=== PATIENT | female | born 1980 | race Caucasian/White ===

== ENCOUNTER 2017-05-10 11:35 | Observation (INO) ==
--- NOTE | 2017-05-10 12:05 | Emergency Department Note ---
Disposition Clinical Impression: Chest pain Qualifiers: Chest pain type: other chest pain Qualified Code(s): R07.89 - Other chest pain Disposition: Admitted As Inpatient Condition: Good Chest Pain HPI - General Chief Complaint: ED Chest Pain Stated Complaint: CP Time Seen by Provider: 05/10/17 11:55 Source: patient Mode of arrival: ambulatory Limitations: no limitations Vital Signs Reviewed: Yes Nursing Notes Reviewed: Yes - History of Present Illness HPI Narrative: 36-year-old who comes in complaining of chest pain. Patient states she's had chest pain in the past that has been attributed to anxiety although she says this feels different. He states in the past she's had rapid heartbeat intermittently and states her doctor has never worked it up. Pt complaint: chest pain Onset (ago): Just [employer] Duration: constant Onset: during rest Severity: moderate Severity scale (1-10): 4 Quality: tightness Pain Radiation: none Improves with: nothing Worsens with: nothing Associated symptoms: Reports: other (Some generalized leg cramps) Treatments prior to arrival chest pain: none - Related Data Home Medications Medication Instructions Recorded Confirmed BuPROPion SR (12 HR) [Wellbutrin 150 mg PO DAILY 05/10/17 05/10/17 SR] hydrOXYzine HCl [Hydroxyzine HCl] 50 mg PO BID PRN 05/10/17 05/10/17 Allergies Allergy/AdvReac Type Severity Reaction Status Date / Time acetaminophen [From Percocet] AdvReac Hallucinati Verified 05/10/17 14:43 ng Oxycodone [From Percocet] AdvReac Hallucinati Verified 05/10/17 14:43 ng All systems ED: reviewed and negative except as stated. Constitutional: Denies: fever, chills, weakness, weight change Eyes: Denies: eye pain, eye discharge, vision change ENT ED: Denies: ear pain, throat pain, dental pain, hearing loss, epistaxis, congestion, dysphagia Cardiovascular: Reports: chest pain. Denies: palpitations, dyspnea on exertion , edema, syncope Respiratory: Denies: cough, dyspnea, wheezes, hemoptysis, stridor Gastrointestinal: Denies: abdominal pain, nausea, vomiting, diarrhea, constipation, hematemesis, melena, hematochezia Genitourinary: Denies: dysuria, frequency, hematuria, discharge Musculoskeletal: Denies: back pain, neck pain, arthralgia, myalgia Integumentary: Denies: rash, abrasion, lesions Neurological: Denies: headache, weakness, numbness, paresthesias, confusion, abnormal gait, vertigo Psychiatric: Denies: anxiety, depression, suicidal thoughts, homicidal thoughts , auditory hallucinations, visual hallucinations Endocrine: Denies: fatigue Hematological/Lymphatic: Denies: easy bleeding, easy bruising Allergic/Immunologic: Denies: facial swelling, urticaria Chest Pain PMH - Past Medical History Medical history: Reports: kidney stones Surgical history: Reports: RHONDA/BSO Psychiatric history: Reports: anxiety - Social History Smoking Status: Current every day smoker Alcohol use: Reports: none, occasionally Drug use: Reports: none Physical Exam - General Limitations: no limitations General appearance: alert, in no apparent distress - Head Head exam: atraumatic, normocephalic, normal inspection - Eye Eye exam: Present: normal appearance, PERRL, EOMI - ENT ENT exam: normal exam, normal oropharynx, mucous membranes moist - Neck Neck exam: Present: normal inspection, full ROM, trachea midline - Chest Chest inspection: Present: normal inspection, symmetric chest wall rise - Respiratory Respiratory exam: Present: normal lung sounds bilaterally - Cardiovascular Cardiovascular exam: Present: regular rate, normal rhythm, normal heart sounds - Abdominal Exam Abdominal exam: Present: soft, Non-Tender. Absent: tenderness, distention, guarding, rebound, rigidity - Extremities Exam Extremities exam: Present: normal inspection, full ROM. Absent: tenderness, pedal edema - Back Exam Back exam: Present: normal inspection, full ROM. Absent: tenderness - Neurological Exam Neurological exam: Present: alert, oriented X3 - Psychiatric Psychiatric exam: Present: normal affect, normal mood - Skin Skin exam: Present: warm, dry, intact, normal color Course - Reevaluation(s) Reevaluation #1: 36-year-old female comes in with intermittent chest pain. EKG was obtained did show what appears to be new ST segment depression in leads V4 V5 and V6 compared to previous EKG. Troponin is negative Rhina bring her in as an observation. Time: 14:06 - Consultations Consultation #1: Discussed with , admit Time: 14:06 Vital Signs Temperature 98.7 F 05/10/17 11:37 Pulse Rate 111 05/10/17 11:37 Respiratory Rate 18 02/13/18 11:37 Blood Pressure 140/94 05/10/17 11:37 O2 Sat by Pulse Oximetry 100 05/10/17 11:37 Temperature 98.3 F 05/11/17 16:34 Pulse Rate 75 05/11/17 16:34 Respiratory Rate 16 05/11/17 16:34 Blood Pressure 122/83 05/11/17 16:34 O2 Sat by Pulse Oximetry 94 05/11/17 16:34 Oxygen Delivery Oxygen Delivery Room Air Chest Pain - Lab Data Result diagrams: 05/11/17 01:07 05/11/17 01:07 Lab Results 05/10/17 05/10/17 05/10/17 Range/Units 11:48 11:48 11:48 WBC 8.6 (4.3-11.1) K/mcL RBC 5.22 H (3.82-4.97) M/mcL Hgb 15.9 H (11.5-15.4) g/dL Hct 49.8 H (35.3-44.9) % MCV 95.4 (83.0-100.0) fL MCH 30.5 (28.0-33.3) pg MCHC 31.9 (31.6-35.5) g/dL RDW 14.3 (11.5-14.5) % Plt Count 191 (140-400) K/mcL MPV 11.7 (9.4-12.4) fL Immature Gran % 0.2 (0-4) % Seg Neutrophils % 65.8 % Lymphocytes % 25.3 % Monocytes % 7.4 % Eosinophils % 1.0 % Basophils % 0.3 % Neutrophils # 5.7 (1.6-8.9) K/mcL Lymphocytes # 2.2 (0.6-4.6) K/mcL Monocytes # 0.6 (0.0-1.3) K/mcL Eosinophils # 0.1 (0.0-0.6) K/mcL Basophils # 0.0 (0.0-0.2) K/mcL PT 11.4 (9.4-12.1) Seconds INR 1.1 APTT 31.9 (26.0-36.0) Seconds D-Dimer < 215 (0-500) ng/mLFEU Sodium 139 (136-145) mEq/L Potassium 3.9 (3.5-5.1) mEq/L Chloride 106 (98-107) mEq/L Carbon Dioxide 26 (23-29) mEq/L BUN 12 (6-20) mg/dL Creatinine 0.77 (0.60-1.20) mg/dL Est GFR ( Amer) > 60 (> 60) Est GFR (Non-Af Amer) > 60 (> 60) BUN/Creatinine Ratio 16 (6-26) Glucose 102 (70-105) mg/dL Calculated Osmolality 288 (280-300) Calcium 10.1 (8.6-10.3) mg/dL Magnesium 2.0 (1.6-2.6) mg/dL Troponin I (< 0.04) ng/mL TSH 2.069 (0.340-5.600) mcIU/mL 05/10/17 Range/Units 11:48 WBC (4.3-11.1) K/mcL RBC (3.82-4.97) M/mcL Hgb (11.5-15.4) g/dL Hct (35.3-44.9) % MCV (83.0-100.0) fL MCH (28.0-33.3) pg MCHC (31.6-35.5) g/dL RDW (11.5-14.5) % Plt Count (140-400) K/mcL MPV (9.4-12.4) fL Immature Gran % (0-4) % Seg Neutrophils % % Lymphocytes % % Monocytes % % Eosinophils % % Basophils % % Neutrophils # (1.6-8.9) K/mcL Lymphocytes # (0.6-4.6) K/mcL Monocytes # (0.0-1.3) K/mcL Eosinophils # (0.0-0.6) K/mcL Basophils # (0.0-0.2) K/mcL PT (9.4-12.1) Seconds INR APTT (26.0-36.0) Seconds D-Dimer (0-500) ng/mLFEU Sodium (136-145) mEq/L Potassium (3.5-5.1) mEq/L Chloride (98-107) mEq/L Carbon Dioxide (23-29) mEq/L BUN (6-20) mg/dL Creatinine (0.60-1.20) mg/dL Est GFR ( Amer) (> 60) Est GFR (Non-Af Amer) (> 60) BUN/Creatinine Ratio (6-26) Glucose (70-105) mg/dL Calculated Osmolality (280-300) Calcium (8.6-10.3) mg/dL Magnesium (1.6-2.6) mg/dL Troponin I < 0.03 (< 0.04) ng/mL TSH (0.340-5.600) mcIU/mL - EKG Data EKG attestation: Yes I reviewed and interpreted this EKG. EKG shows normal: sinus rhythm Rate: normal Rhythm: NSR ST segment depression in: v4, v5, v6 Interpretation: other (New ST segment depression V4 5 and 6)
[2017-05-10 12:07] LABS: INR 1.1; Prothrombin Time 11.4 Seconds (9.4-12.1)
[2017-05-10 12:10] LABS: Activated Partial Thrombo Time 31.9 Seconds (26.0-36.0)
[2017-05-10] MEDS ORDERED: clonazePAM 0.5 MG TABLET PO STA (12:14)
[2017-05-10 12:21] LABS: Basophils % 0.3 %; Eosinophils # 0.1 K/mcL (0.0-0.6); Hematocrit 49.8 % (35.3-44.9); Hemoglobin 15.9 g/dL (11.5-15.4); Immature Granulocytes % 0.2 % (0-4); Lymphocytes # 2.2 K/mcL (0.6-4.6); Lymphocytes % 25.3 %; Mean Corpuscular HGB Conc 31.9 g/dL (31.6-35.5); Mean Corpuscular Hemoglobin 30.5 pg (28.0-33.3); Mean Corpuscular Volume 95.4 fL (83.0-100.0); Mean Platelet Volume 11.7 fL (9.4-12.4); Monocytes # 0.6 K/mcL (0.0-1.3); Monocytes % 7.4 %; Neutrophils # 5.7 K/mcL (1.6-8.9); Platelet Count 191 K/mcL (140-400); Red Blood Count 5.22 M/mcL (3.82-4.97); Red Cell Distribution Width 14.3 % (11.5-14.5); Segmented Neutrophils % 65.8 %
[2017-05-10 12:28] LABS: BUN/Creatinine Ratio 16 (6-26); Blood Urea Nitrogen 12 mg/dL (6-20); Calcium 10.1 mg/dL (8.6-10.3); Carbon Dioxide 26 mEq/L (23-29); Chloride 106 mEq/L (98-107); Glucose 102 mg/dL (70-105); Osmolality,Calculated 288 (280-300); Potassium 3.9 mEq/L (3.5-5.1); Sodium 139 mEq/L (136-145); eGFR For African Americans > 60 (> 60); eGFR For Non-African Americans > 60 (> 60)
[2017-05-10 12:29] LABS: D-Dimer < 215 ng/mLFEU (0-500)
[2017-05-10 12:48] LABS: Thyroid Stimulating Hormone 2.069 mcIU/mL (0.340-5.600)
[2017-05-10] MEDS ORDERED: 0.9 % Sodium Chloride 1,000 ML IVC ONE (13:42)
[2017-05-10] MEDS ORDERED: Aspirin 81 MG TAB.CHEW PO STA (13:42)
[2017-05-10] MEDS ORDERED: Ondansetron ODT 4 MG TAB.RAPDIS SL ONE (14:16)
[2017-05-10] MEDS ORDERED: Naloxone 0.4 MG/ML INJ IVP PRN (16:17)
[2017-05-10] MEDS ORDERED: Nitroglycerin 0.4 MG TAB.SUBL SL PRN (16:28)
[2017-05-10] MEDS ORDERED: hydrOXYzine pamoate 25 MG CAPSULE PO PRN (16:29)
--- NOTE | 2017-05-10 17:14 | Internal Med History&Physical ---
<OumarrachelxochiltAramis moy - Last Filed: 05/10/17 19:35> Date of Encounter: 05/10/17 Time of Encounter: 15:30 Assessment and Plan (1) Chest pain Current visit: Yes Status: Acute Acute chest pain began Tuesday afternoon as clenching feeling in chest with radiation to right arm with numbness and tingling, back, and right neck. Same symptoms 2 weeks ago. No cardiac history. Initial troponin <0.03. Trend 2. Echocardiogram ordered EKG sloughs sinus tachycardia with possible left atrial enlargement and borderline right axis deviation. Nothing by mouth at midnight for a.m. nuclear pharm stress test if troponins remain negative. Continuous cardiac telemetry. Nitroglycerin SL when necessary. Aspirin therapy. Lipitor 20 mg now. Consider cardiac consult based on abnormal echocardiogram, increasing troponins, and/or abnormal stress test results. Pt. to be monitored closely. Patient is at high risk for cardiac event based on father having NJ at age 52, recurring chest pain and sx, uncontrolled stress/anxiety, and mother w/ chronic carotid blockages. Observation. Qualifiers: Chest pain type: other chest pain Qualified Code(s): R07.89 - Other chest pain; R07.8 - Other chest pain (2) Dizziness Current visit: Yes Status: Acute Acute dizziness w/ambulation. Reports mother has chronic carotid blockages. Falls/safety precautions. PT/OT consults to assess for ambulation stability and strength. Bilateral carotid Doppler duplex imaging ordered. (3) GERD (gastroesophageal reflux disease) Current visit: Yes Status: Chronic Hx of chorinc and uncontrolled GERD. Pt. reports chronic heartburn which could be contributing to current CP sx. Phenergan 12.5 mg IVP every 6 for nausea. IVP Protonix 40 mg daily. Qualifiers: Esophagitis presence: esophagitis presence not specified Qualified Code(s) : K21.9 - Gastro-esophageal reflux disease without esophagitis (4) Anxiety Current visit: Yes Status: Chronic Hx of chronic anxiety that the pt. reports is not well-controlled. Reports 3 children including teenage son w/PTSD and SI. Tearful on exam. Psychiatric consult to assess for better psychiatric mgmt. Continue pts. Hydroxyzine and Klonopin. (5) Hx of renal calculi Current visit: Yes Status: Resolved Hx of chronic renal calculi. Stable. Monitor I&O. (6) DVT prophylaxis Current visit: Yes Status: Acute Heparin 5000 units SQ Q8 for DVT prophylaxis. Monitor patient for signs of bleeding. Internal Medicine - H&P: HPI Chief complaint: Chest pain Admitted From: Emergency Dept Plans for Post Hospital Care: Home History of present illness: Ms. Cassidy is a 36 year old female with medical history of kidney stones and GERD presents from the ED with chief complaint of chest pain that began Tuesday afternoon as centralized chest pain she describes as a clenching feeling in her chest with radiation to her right arm with numbness and tingling, back, and right neck. Same sx 2 weeks ago. Reports pain worsens with breathing and stress. Reports uncontrolled GERD and anxiety. Denies cardiac workup previously, echocardiogram, heart catheterization, or stress test. Also reports bilateral leg cramps and pain for the past 2 days. Patient reports SOB w/chest pain, dizziness, and nausea but denies recent illness, fever, chills, vomiting, changes in vision, headache, palpitations, abdominal pain, diarrhea, constipation, cough, chest congestion, pre-syncope, or syncope. Past Med Surg Social Fam HX - Past Medical History Source: patient, old records reviewed Medical history: kidney stones Psychiatric history: anxiety - Past Surgical History Surgical History: hysterectomy (Total), RHONDA/BSO - Social History Smoking Status: Current every day smoker Packs per day: 1 PPD Smokeless Tobacco Status: No Alcohol use: none, occasionally Drug use: marijuana Current living situation: Home, With Family Activity Level: Independent ambulation Recent Out of Country Travel Within the Last 8 Weeks: No Exposure or Possible Exposure to Illness During Travel: No - Family History Father Race: Family Member Ethnicity: Non- Living Status: Still Living Hx Family Cardiac Disorders: Yes (Mi @ 52) Mother Race: Family Member Ethnicity: Non- Living Status: Still Living Hx Family Cardiac Disorders: Yes (Carotid blockages) Brother Race: Family Member Ethnicity: Non- Living Status: Still Living Hx Family Medical Disorders: No Internal Medicine - H&P: Meds BuPROPion SR (12 HR) [Wellbutrin SR] 150 mg PO DAILY 05/10/17 [History] hydrOXYzine HCl [Hydroxyzine HCl] 50 mg PO BID PRN 05/10/17 [History] 3 Allergy/AdvReac Type Severity Reaction Status Date / Time acetaminophen [From Percocet] AdvReac Hallucinati Verified 05/10/17 14:43 ng Oxycodone [From Percocet] AdvReac Hallucinati Verified 05/10/17 14:43 ng All Systems PM: A 10-system review of systems was performed and is negative for pertinent findings except as documented above in the HPI. - Constitutional Constitutional: no chills, no fever(s), no night sweats - EENT Eyes: no change in vision, no discharge, no pain, no photophobia Ears: no ear discharge, no ear pain, no tinnitus Nose, mouth and throat: no dysphagia, no nasal discharge, no neck pain, no sore throat - Breasts Breasts: as per HPI - Cardiovascular Cardiovascular ROS IM: as per HPI, chest pain, dyspnea, dyspnea on exertion, no diaphoresis, no lightheadedness, no palpitations, no syncope - Respiratory Respiratory: as per HPI, dyspnea, dyspnea on exertion, no cough, no wheezing, no excessive phlegm production - Gastrointestinal Gastrointestinal: as per HPI, heartburn, nausea, no abdominal pain, no diarrhea , no hematemesis, no hematochezia, no melena, no vomiting - Genitourinary Genitourinary: no change in urinary stream, no dysuria, no flank pain, no hematuria Menstruation: as per HPI, post hysterectomy (Total) - Musculoskeletal Musculoskeletal ROS IM: as per HPI, numbness (Right arm), tingling (Right arm) - Integumentary Integumentary IM: no rash, no unusual bruising - Neurological Neurological ROS: as per HPI, dizziness, numbness, tingling, no confusion, no convulsions, no focal weakness, no tremor(s) - Psychiatric Psychiatric: as per HPI, anxiety - Endocrine Endocrine IM: as per HPI - Hematologic/Lymphatic Hematologic/Lymphatic: no easy bruising - Allergic/Immunologic Allergic/Immunologic: as per HPI - Constitutional Vitals: Temp Pulse Resp BP Pulse Ox 99 F 69 16 129/87 99 05/10/17 16:19 05/10/17 16:19 05/10/17 16:19 05/10/17 16:19 05/10/17 16:19 General appearance: Present: cooperative, A&O X 2, mild distress (Chest pain), A &O X 3, pleasant, answers questions appropriately - Head Head exam: Present: atraumatic, normocephalic - Eye Eye exam: Present: PERRL, conjuntiva pink, sclera anicteric Pupils: Present: PERRL - ENT ENT exam: Present: normal exam - Neck Neck exam general surgery: Present: normal inspection, supple, trachea midline. Absent: lymphadenopathy - Respiratory Respiratory exam: Present: CTAB. Absent: accessory muscle use, rales, rhonchi, wheezes - Cardiovascular Cardiovascular exam: Present: RRR, +S1, +S2. Absent: diastolic murmur, gallop, rubs, systolic murmur - GI/Abdominal GI/Abdominal exam: Present: normal bowel sounds, soft, no peritoneal signs. Absent: distended, tenderness - Rectal Rectal exam: Present: deferred - Additional comments: exam deferred. - Extremities Exam Extremities exam: Present: calf tenderness (Cramps in bilateral calfs, left worse than right), warm, radial pulses palpable and symmetrical. Absent: cyanotic, pedal edema - Back Exam Back exam: Present: normal inspection - Neurological Exam Neurological exam: Present: CN II-XII intact, oriented X3, no focal deficits. Absent: pronater drift, facial droop, speech deficit - Psychiatric Psychiatric exam: Present: anxious - Skin Skin exam: Present: dry, intact Internal Med - H&P Results - Labs CBC & Chem 7: 05/10/17 11:48 05/10/17 11:48 - EKG Data EKG shows normal: sinus rhythm Rate: tachycardia - EKG Data Prior EKG available for review: yes EKG comments: 05/10/17 17:20 EKG dated 07/15/03 shows sinus tachycardia with possible left atrial abnormality , STT changes in inferior leads. These changes could be a normal variant young women. Borderline ECG. EKG dated 05/10/17 shows sinus tachycardia with possible left atrial enlargement , borderline right axis deviation, moderate ST depression. Abnormal ECG. - Diagnostic Studies Chest x-ray Additional comments: Impressions Chest X-Ray 05/10/17 11:41 IMPRESSION: No acute cardiopulmonary process. D/ / 05/10/2017 12:13:27 Sim Garcia MD / eberry Interpreting Provider: Sim Garcia MD <Mark Chávez - Last Filed: 05/10/17 23:17> Date of Encounter: 05/10/17 Internal Medicine - H&P: HPI History of present illness: Ms. Cassidy is a 36 year old female All Systems PM: A 10-system review of systems was performed and is negative for pertinent findings except as documented above in the HPI. - Constitutional Vitals: Temp Pulse Resp BP Pulse Ox 98.4 F 69 16 94/65 98 05/10/17 19:30 05/10/17 19:30 05/10/17 19:30 05/10/17 19:30 05/10/17 19:30 Internal Med - H&P Results - Labs CBC & Chem 7: 05/10/17 11:48 05/10/17 11:48 Labs: Cardiac Enzymes 05/10/17 Range/Units 17:46 Troponin I < 0.03 (< 0.04) ng/mL - Attending Attestation I have personally performed a face to face evaluation on this patient. I have reviewed and agree with the care plan. History and Exam by me shows: Patient presents to the hospital with right-sided chest pain. On exam she is in no acute distress, appears depressed and anxious. Heart is regular with normal S1-S2 no murmurs rubs or gallops. There is moderate tenderness to palpation of the precordial area mostly on the right side. There is no rashes or bruises visible in the chest area. Plan: Place in observation. Monitor on telemetry. Trend troponin. Obtain stress test in the morning. Resume home medication for anxiety and depression. Consult psychiatry. I advised smoking cessation.
[2017-05-10] MEDS: Acetaminophen 325 MG TABLET PO PRN (17:26)
[2017-05-10] MEDS: Nicotine 14 MG PATCH.TD24 TD SCH (17:27)
[2017-05-10] MEDS: *HR* Promethazine 25 MG/ML VIAL IVP PRN (17:27)
[2017-05-10] MEDS: Pantoprazole 40 MG VIAL IVP SCH (17:27)
[2017-05-10] MEDS: *HR* Heparin 5,000 UNIT/ML VIAL SQ SCH (21:35)
[2017-05-11] MEDS: Acetaminophen 325 MG TABLET PO PRN (00:40)
[2017-05-11] MEDS: *HR* Promethazine 25 MG/ML VIAL IVP PRN ×2 (00:40→07:42)
[2017-05-11 01:54] LABS: Basophils % 0.4 %; Eosinophils # 0.1 K/mcL (0.0-0.6); Eosinophils % 2.1 %; Hematocrit 42.2 % (35.3-44.9); Immature Granulocytes % 0.1 % (0-4); Lymphocytes # 3.7 K/mcL (0.6-4.6); Lymphocytes % 54.9 %; Mean Corpuscular Hemoglobin 30.2 pg (28.0-33.3); Mean Corpuscular Volume 94.4 fL (83.0-100.0); Mean Platelet Volume 11.6 fL (9.4-12.4); Monocytes # 0.5 K/mcL (0.0-1.3); Monocytes % 7.2 %; Neutrophils # 2.4 K/mcL (1.6-8.9); Platelet Count 165 K/mcL (140-400); Red Blood Count 4.47 M/mcL (3.82-4.97); Red Cell Distribution Width 14.3 % (11.5-14.5); Segmented Neutrophils % 35.3 %
[2017-05-11 02:01] LABS: Hemoglobin A1C 4.9 %
[2017-05-11 02:07] LABS: Hemoglobin 13.5 g/dL (11.5-15.4)
[2017-05-11 02:41] LABS: Alanine Aminotransferase 11 Units/L (7-52); Albumin 3.6 g/dL (3.5-5.7); Albumin/Globulin Ratio 1.3 (1.1-2.2); Alkaline Phosphatase 61 Units/L (34-104); Aspartate Amino Transferase 17 Units/L (13-39); BUN/Creatinine Ratio 19 (6-26); Bilirubin,Total 0.5 mg/dL (0.3-1.0); Blood Urea Nitrogen 14 mg/dL (6-20); Calcium 9.1 mg/dL (8.6-10.3); Carbon Dioxide 24 mEq/L (23-29); Chloride 112 mEq/L (98-107); Cholesterol 169 mg/dL (< 200); Globulin 2.8 g/dL (2.4-3.5); Glucose 86 mg/dL (70-105); HDL Cholesterol 34 mg/dL (40-59); LDL Cholesterol,Calculated 115 mg/dL (0-99); Osmolality,Calculated 292 (280-300); Potassium 3.9 mEq/L (3.5-5.1); Sodium 141 mEq/L (136-145); Total Protein 6.4 g/dL (6.4-8.9); Triglycerides 100 mg/dL (< 150); eGFR For African Americans > 60 (> 60); eGFR For Non-African Americans > 60 (> 60)
[2017-05-11] MEDS: *HR* Heparin 5,000 UNIT/ML VIAL SQ SCH ×2 (05:22→14:05)
[2017-05-11] MEDS ORDERED: Regadenoson 0.4 MG/5 ML SYRINGE IVP ONE ×2 (06:07→12:12)
[2017-05-11] MEDS: Nicotine 14 MG PATCH.TD24 TD SCH (07:35)
[2017-05-11] MEDS: Pantoprazole 40 MG VIAL IVP SCH (07:42)
[2017-05-11 08:10] LABS: Amphetamine Screen,Urine Negative ng/mL (Cutoff=1000); Barbiturate Screen,Urine Negative ng/mL (Cutoff=200); Benzodiazepines Screen,Urine Negative ng/mL (Cutoff=200); Cannabinoid Screen,Urine Positive ng/mL (Cutoff = 50); Cocaine Screen,Urine Negative ng/mL (Cutoff= 300); Opiate Screen,Urine Negative ng/mL (Cutoff=300); Phencyclidine Screen,Urine Negative ng/mL (Cutoff=25)
[2017-05-11] MEDS ORDERED: BuPROPion SR (12 HR) 150 MG TABLET PO SCH (09:00)
[2017-05-11] MEDS ORDERED: Aspirin Enteric Coated 81 MG Tablet PO SCH (09:00)
--- NOTE | 2017-05-11 09:16 | Electrocardiograph Report ---
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
[2017-05-11 16:35] VITALS: BP 122/83
--- NOTE | 2017-05-11 16:55 | Consult Note ---
Date of Encounter: 05/11/17 Time of Encounter: 16:00 History of Present Illness Requesting Physician: Jordana Arias CNP Reason for consult: anxiety History of present illness: Ms. Cassidy is a 36 year old female Patient is a single but white female. Chief complaint is major anxiety. History of present illness. The patient has been admitted for a cardiac stress test and she recently found out it was negative for cardiovascular disease. Nonetheless patient has some risk factors for this. Patient's psychiatric history is significant for major depression and panic attacks and some obsessive-compulsive features. It also includes [place] phobia. The patient has been treated in the [facility] by her primary care nurse practitioner. She was treated with Wellbutrin but developed nausea and has not taken she is only continued on her aspirin. The patient reports that Wellbutrin XL 150 mg it is generally well tolerated but the dose of 300 is not well tolerated. The patient was treated for many years and up until the time of her hysterectomy in 2014. The patient did not need treatment for panic attacks or agoraphobia until December 2016 at that time her oldest son was involved and situation where he developed PTSD cutting and hospitalizations at [facility]. The patient developed a panic attack at that time and was evaluated for 1 day by one of the nurses but was so sedated she could not do well. The setting at that time was so upsetting that the patient did not want to come in psychiatric hospital or and she continued with her ongoing treatment. A diagnosis of major depression was made where Wellbutrin was prescribed. Hydroxyzine was used which did not help. The patient took Seroquel for 2 nights but was "off the wall standing up dizzy and some worsening sleep. The patient agrees that medical marijuana may be helpful for pain and has been smoking marijuana she does not think that this medical marijuana is associated with the incidence of panic attacks she has used it primarily for back pain she is also in physical therapy for back pain. The patient has no psychiatric hospitalizations no troubles with alcohol or drug abuse. The past medical history is significant for the hysterectomy she has had several kidney stones. The patient reports no illnesses. She is on no other medicines. She has an allergy to Percocet which causes itching and possibly a rash she is ABO Family history is significant for a mother with psychiatric illness. The mother was hospitalized recently and placed on Lexapro and other medicines. Maternal grandmother maternal aunts and a paternal grandmother had problems with anxiety the patient's son has been diagnosed with PTSD he is on BuSpar and Klonopin. There is no family history of suicide alcohol or drug abuse. The patient was raised in [facility]. Social history she has 2 evictions has lost 2 jobs and has had problems with 2 relationships one ending in her manic episode for her son. 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 Review of systems reveals leg cramps muscle spasms restless leg syndrome and a bed partner described her as riding a bicycle she has never been to a sleep lab. She says she does not sleep that she is kicking. Patient has not seen a psychiatrist. She reports a history of increased anxiety when started on medications. She has some of the features of obsessive-compulsive disorder this includes ordering and arranging meaning and confessing. Sometimes she will stay up all night ordering and arranging things. CC: Jordana Arias, MILLER Past Med Surg Social Fam HX - Past Medical History Source: patient Medical history: kidney stones - Past Psychiatric History Psychiatric history: Reports: panic disorder Family psychiatric history: Yes Family History of Suicide: None - Past Surgical History Surgical History: hysterectomy (Total), RHONDA/BSO - Social History Smoking Status: Current every day smoker Smokeless Tobacco Status: No Alcohol use: none, occasionally Drug use: marijuana Occupational status: previously employed Current living situation: Home - Independent, With Family Activity Level: Independent ambulation Recent Out of Country Travel Within the Last 8 Weeks: No Exposure or Possible Exposure to Illness During Travel: No - Family History Father Race: Family Member Ethnicity: Non- Living Status: Still Living Hx Family Cardiac Disorders: Yes (Mi @ 52) Mother Race: Family Member Ethnicity: Non- Living Status: Still Living Hx Family Cardiac Disorders: Yes (Carotid blockages) Brother Race: Family Member Ethnicity: Non- Living Status: Still Living Hx Family Medical Disorders: No Medications & Allergies BuPROPion SR (12 HR) [Wellbutrin SR] 150 mg PO DAILY 05/10/17 [History] hydrOXYzine HCl [Hydroxyzine HCl] 50 mg PO BID PRN 05/10/17 [History] 3 Allergy/AdvReac Type Severity Reaction Status Date / Time acetaminophen [From Percocet] AdvReac Hallucinati Verified 05/10/17 14:43 ng Oxycodone [From Percocet] AdvReac Hallucinati Verified 05/10/17 14:43 ng Review of Systems Psychiatric: Reports: anxiety, abnormal sleep pattern, memory loss, difficulty concentrating, panic attacks Mental Status Exam Patient orientation: Yes Person, Yes Time, Yes Place, Yes Circumstance Level of alertness: Alert Patient appearance: Appropriate Behavior: nervous, anxious Psychomotor activity: Normal Eye contact: Maintains Eye Contact Mood description: Anxious Affect description: congruent with mood, anxious Speech pattern: Normal rate, Normal rhythm Speech volume: Normal Thought process: Intact Thought content: Yes Intact Attention span: Capable of Focused Attention Memory description: Grossly Intact Patient reliability: Reliable Historian Intelligence estimate: Above [place] Judgment: Good Insight: Full Results - Vital Signs Vital signs: Temp Pulse Resp BP Pulse Ox 98.3 F 75 16 122/83 94 05/11/17 16:34 05/11/17 16:34 05/11/17 16:34 05/11/17 16:34 05/11/17 16:34 - Drug Levels and Toxicology Drug Levels and Toxicology: Drug Levels and Toxicity 05/11/17 07:41 Urine Opiates Screen Negative Ur Barbiturates Screen Negative Ur Phencyclidine Scrn Negative Ur Amphetamines Screen Negative U Benzodiazepines Scrn Negative Urine Cocaine Screen Negative U Marijuana (THC) Screen Positive H - Labs Labs: Laboratory Last Values WBC 6.8 K/mcL (4.3-11.1) 05/11/17 01:07 RBC 4.47 M/mcL (3.82-4.97) 05/11/17 01:07 Hgb 13.5 g/dL (11.5-15.4) D 05/11/17 01:07 Hct 42.2 % (35.3-44.9) 05/11/17 01:07 MCV 94.4 fL (83.0-100.0) 05/11/17 01:07 MCH 30.2 pg (28.0-33.3) 05/11/17 01:07 MCHC 32.0 g/dL (31.6-35.5) 05/11/17 01:07 RDW 14.3 % (11.5-14.5) 05/11/17 01:07 Plt Count 165 K/mcL (140-400) 05/11/17 01:07 MPV 11.6 fL (9.4-12.4) 05/11/17 01:07 Immature Gran % 0.1 % (0-4) 05/11/17 01:07 Seg Neutrophils % 35.3 % 05/11/17 01:07 Lymphocytes % 54.9 % 05/11/17 01:07 Monocytes % 7.2 % 05/11/17 01:07 Eosinophils % 2.1 % 05/11/17 01:07 Basophils % 0.4 % 05/11/17 01:07 Neutrophils # 2.4 K/mcL (1.6-8.9) 05/11/17 01:07 Lymphocytes # 3.7 K/mcL (0.6-4.6) 05/11/17 01:07 Monocytes # 0.5 K/mcL (0.0-1.3) 05/11/17 01:07 Eosinophils # 0.1 K/mcL (0.0-0.6) 05/11/17 01:07 Basophils # 0.0 K/mcL (0.0-0.2) 05/11/17 01:07 PT 11.4 Seconds (9.4-12.1) 05/10/17 11:48 INR 1.1 05/10/17 11:48 APTT 31.9 Seconds (26.0-36.0) 05/10/17 11:48 D-Dimer < 215 ng/mLFEU (0-500) 05/10/17 11:48 Sodium 141 mEq/L (136-145) 05/11/17 01:07 Potassium 3.9 mEq/L (3.5-5.1) 05/11/17 01:07 Chloride 112 mEq/L (98-107) H 05/11/17 01:07 Carbon Dioxide 24 mEq/L (23-29) 05/11/17 01:07 BUN 14 mg/dL (6-20) 05/11/17 01:07 Creatinine 0.74 mg/dL (0.60-1.20) 05/11/17 01:07 Est GFR ( Amer) > 60 (> 60) 05/11/17 01:07 Est GFR (Non-Af Amer) > 60 (> 60) 05/11/17 01:07 BUN/Creatinine Ratio 19 (6-26) 05/11/17 01:07 Glucose 86 mg/dL (70-105) 05/11/17 01:07 Est Mean Plasma Glucose 94 mg/dl 05/11/17 01:07 Hemoglobin A1c 4.9 % (-5.6) 05/11/17 01:07 Calculated Osmolality 292 (280-300) 05/11/17 01:07 Calcium 9.1 mg/dL (8.6-10.3) 05/11/17 01:07 Magnesium 2.0 mg/dL (1.6-2.6) 05/10/17 11:48 Total Bilirubin 0.5 mg/dL (0.3-1.0) 05/11/17 01:07 AST 17 Units/L (13-39) 05/11/17 01:07 ALT 11 Units/L (7-52) 05/11/17 01:07 Alkaline Phosphatase 61 Units/L (34-104) 05/11/17 01:07 Troponin I < 0.03 ng/mL (< 0.04) 05/11/17 01:07 Serum Total Protein 6.4 g/dL (6.4-8.9) 05/11/17 01:07 Albumin 3.6 g/dL (3.5-5.7) 05/11/17 01:07 Globulin 2.8 g/dL (2.4-3.5) 05/11/17 01:07 Albumin/Globulin Ratio 1.3 (1.1-2.2) 05/11/17 01:07 Triglycerides 100 mg/dL (< 150) 05/11/17 01:07 Cholesterol 169 mg/dL (< 200) 05/11/17 01:07 LDL Cholesterol, Calc 115 mg/dL (0-99) H 05/11/17 01:07 VLDL Cholesterol, Calc 20 mg/dL (< 31) 05/11/17 01:07 HDL Cholesterol 34 mg/dL (40-59) L 05/11/17 01:07 Cholesterol/HDL Ratio 5.0 (0-4.9) H 05/11/17 01:07 TSH 2.069 mcIU/mL (0.340-5.600) 05/10/17 11:48 Urine Opiates Screen Negative ng/mL (Smxsqd=847) 05/11/17 07:41 Ur Barbiturates Screen Negative ng/mL (Xnkuxz=907) 05/11/17 07:41 Ur Phencyclidine Scrn Negative ng/mL (Cutoff=25) 05/11/17 07:41 Ur Amphetamines Screen Negative ng/mL (Zipbwb=9940) 05/11/17 07:41 U Benzodiazepines Scrn Negative ng/mL (Weiofz=251) 05/11/17 07:41 Urine Cocaine Screen Negative ng/mL (Cutoff= 300) 05/11/17 07:41 U Marijuana (THC) Screen Positive ng/mL (Cutoff = 50) H 05/11/17 07:41 - Impressions Impressions Echocardiogram 05/11/17 16:22 Impressions: LVEF 60-65%. Normal LV chamber size, wall thickness and function. Mild left ventricular diastolic dysfunction. Normal right ventricular structure and function. No evidence of pulmonary hypertension. No significant valvular dysfunction. Left Ventricular Wall Motion: Rest Echo Findings All wall segments showed normal motion. Findings: Study Quality * Technically adequate exam. ECG Findings * Normal sinus rhythm. Left Ventricle * LVEF 60-65%. * Normal LV chamber size, wall thickness and function. * Mild left ventricular diastolic dysfunction. Right Ventricle * Normal right ventricular structure and function. Left Atrium * Normal left atrial size. Right Atrium * Normal right atrial size. Interatrial Septum * Interatrial septum not well evaluated. Aortic Valve * Trileaflet aortic valve with normal function. * No aortic regurgitation. * No aortic stenosis. Mitral Valve * Normal mitral valve structure and function. * No mitral regurgitation. * No mitral stenosis. Tricuspid Valve * Normal tricuspid valve structure and function. * Trace tricuspid regurgitation. * No evidence of pulmonary hypertension. Pulmonic Valve * Normal pulmonic valve structure and function. * No pulmonic regurgitation. Aorta * Normally sized aortic root. Pericardium * The pericardium appears normal. IVC * Normal IVC dimensions and inspiratory collapse. Pulmonary Artery * Normal visualized portions of the main pulmonary artery. Consult Discharge Plan - Plan Referrals: NONE,PCP [Primary Care Provider] -
--- NOTE | 2017-05-11 17:02 | Discharge Summary ---
Date of Encounter: 05/11/17 Time of Encounter: 16:00 - Discharge Diagnosis (1) Chest pain Priority: Primary Status: Acute Comments: Acute chest pain began 3 days ago with tightness in chest with radiation to right arm with numbness and tingling, back, and right neck. Same symptoms 2 weeks ago. No cardiac history. Troponins negative x 3. EKG sinus tachycardia with possible left atrial enlargement and borderline right axis deviation. No ST changes. Pain is not reproducible and she has had no chest pain since admission. Carotid within normal limits bilaterally. TTE with preserved ejection fraction , mild LV DD, no significant valvular dysfunction. Stress test is negative for ischemia or infarct with a gated EF of 60%. Chest pain is most likely related to anxiety. She has been evaluated by psychiatry and has been diagnosed with major depression, panic disorder with a core phobia, and OCD. Psychiatry recommended Klonopin 1 mg daily at bedtime for control of symptoms, however patient signed out AGAINST MEDICAL ADVICE prior to being able to get a prescription. Qualifiers: Chest pain type: other chest pain Qualified Code(s): R07.89 - Other chest pain; R07.8 - Other chest pain (2) Dizziness Priority: Secondary Status: Acute Comments: Patient reported occasional dizziness with ambulation. Patient has been ambulatory on the unit, denied dizziness. Bilateral carotids are within normal limits, echocardiogram with preserved ejection fraction and no valvular dysfunction, stress test negative. Orthostatic vital signs were negative. Patient signed out AGAINST MEDICAL ADVICE prior to complete evaluation. (3) Anxiety Priority: Secondary Status: Chronic Comments: Patient with chronic anxiety, pt states that she has major reactions to SSRIs. She was evaluated by psychiatry diagnosed with major depression, panic disorder with diarrhea, obsessive-compulsive disorder. Patient left AMA prior to being able to be given a prescription. She will follow up with [facility]. (4) GERD (gastroesophageal reflux disease) Priority: Secondary Status: Chronic Comments: Chronic. Continue home medications. Qualifiers: Esophagitis presence: esophagitis presence not specified Qualified Code(s) : K21.9 - Gastro-esophageal reflux disease without esophagitis (5) DVT prophylaxis Priority: Secondary Status: Acute Comments: Heparin subcutaneous 3 times a day, patient has been ambulatory. - Discharge Medications Home Medications: BuPROPion SR (12 HR) [Wellbutrin SR] 150 mg PO DAILY 05/10/17 [History] hydrOXYzine HCl [Hydroxyzine HCl] 50 mg PO BID PRN 05/10/17 [History] Allergies/Adverse Reactions: 3 Allergy/AdvReac Type Severity Reaction Status Date / Time acetaminophen [From Percocet] AdvReac Hallucinati Verified 05/10/17 14:43 ng Oxycodone [From Percocet] AdvReac Hallucinati Verified 05/10/17 14:43 ng Procedures/tests Complete & Pending: Procedures Performed prior 72 hours Category Date Time Status NM mahamed perf SPECT multi [NM] Routine Exams 05/10/17 16:24 Taken EV carotid duplex imaging BI Routine Y 05/11/17 16:26 Completed EV echocardiogram Routine Y 05/11/17 16:22 Completed SP pharm nuclear stress Routine Y 05/11/17 07:45 Completed Date of admission: 05/10/17 15:24 Primary care physician: PCP NONE Consults: 05/10/17 16:20 Consult to [employer]er [CONS] Routine Reason for SW Consult: Patient expresses a lot of anxiety and stress at home. Please assess for possible home need assistance for post-discharge planning. 05/10/17 16:21 Consult to Occupational Therapy [CONS] Routine Comment: Evaluate, develop and implement POC Reason for Consult: Patient reports dizziness with ambulation. Please assess patient for ambulation strength, stability, safety, and possible home assistive needs for post-discharge planning. Consult to Physical Therapy [CONS] Routine Comment: Evaluate, develop and implement POC Reason for Consult: Patient reports dizziness with ambulation. Please assess patient for ambulation strength, stability, safety, and possible home assistive needs for post-discharge planning. 05/10/17 17:27 Consult to Psychiatry [CONS] Routine Consulting Provider: Tuan Luna Reason for Consult: Patient reports history of uncontrolled anxiety and states she sees provider that medications are not working for her. Also reports having 3 children, one of which is teenage son with PTSD and suicidal ideations. Please assess for better psychiatric medication management. Call Completed: Yes 05/11/17 11:52 Consult to Invasive Line Access Team [CONS] Routine Reason for Consult: need IV access Line Type: PICC PICC line indications: Limited vascular access Time Notified: 11:52 Call Completed: Yes Discharging clinician: Jordana Arias Anticipated date of discharge: 05/11/17 - Patient Status Disposition: Left Against Medical Advice Condition: Good Functional capacity at discharge: independent ambulation Overall status at discharge: patient is back to baseline - Discharge Instructions Follow Up With: NONE,PCP [Primary Care Provider] - Hospital course: Ms. Cassidy is a 36 year old female with significant past medical history for GERD, anxiety, renal calculi. She presented to the emergency room with history of sudden onset chest tightness with radiation to right arm with numbness and tingling to the back, right neck. Patient reports having symptoms 2 weeks ago. She has no cardiac history. All testing and imaging was negative. She was evaluated by psychiatry, it was recommended at the time that she be given a prescription for Klonopin 1 mg by mouth daily at bedtime to control her symptoms. She was directed to follow up with either [facility] or [facility]. Patient was anxious and demanding to be seen in discharge approximately 1 hour prior to test results being available. She was given her test results and then signed out AMA without prescriptions or discharge instructions. - Time Spent with Patient Total time spent providing and/or coordinating discharge services: Less than 30 minutes - Constitutional Vitals: Temp Pulse Resp BP Pulse Ox 99.0 F 67 16 106/72 98 05/11/17 07:36 05/11/17 07:36 05/11/17 07:36 05/11/17 07:38 05/11/17 07:36 General appearance: Present: cooperative, A&O X 2, A&O X 3, pleasant, no acute distress, answers questions appropriately - Head Head exam: Present: atraumatic, normal inspection, normocephalic - Eye Eye exam: Present: normal appearance, conjuntiva pink, sclera anicteric - Neck Neck exam general surgery: Present: supple, trachea midline. Absent: lymphadenopathy - Respiratory Respiratory exam: Present: decreased breath sounds, CTAB. Absent: accessory muscle use, rales, rhonchi, wheezes - Cardiovascular Cardiovascular exam: Present: RRR, +S1, +S2. Absent: diastolic murmur, gallop, rubs, systolic murmur - GI/Abdominal GI/Abdominal exam: Present: normal bowel sounds, soft. Absent: distended, hepatomegaly, tenderness - Extremities Exam Extremities exam: Present: normal capillary refill, normal inspection, warm, radial pulses palpable and symmetrical. Absent: calf tenderness, cyanotic, pedal edema, tenderness - Neurological Exam Neurological exam: Present: alert, oriented X3, no focal deficits. Absent: facial droop, speech deficit - Skin Skin exam: Present: dry, intact, normal color, warm. Absent: rash
== END 2017-05-11 17:53 | disposition left against medical advice (07) ==
LOC: EMEROO 11:35 → 3BNU 11:35
PROVIDERS: ADMIT Internal Medicine; ATTEND Registered Nurse